=== PATIENT | male | born 1975 | race Caucasian/White ===

== ENCOUNTER → 2022-10-26 | Outpatient (CLI) | payer BC ==
[~2022-10-26] MED LIST: AMLO1TAB25 PO; ASPI81TA26 PO; LIDOCAINE 1% MDV 20ML VIAL As Ordered ONE; PANT40TA29 PO; VYVA70CA3 PO
[2022-10-26 13:05] LABS: HEMATOCRIT 50.3 % (42.0-52.0); HEMOGLOBIN 14.5 g/dl (13.5-17.5); MEAN CORPUSCULAR HGB CONC 28.8 g/dl (32.0-36.5); MEAN CORPUSCULAR VOLUME 72.7 fl (80.0-96.0); PLATELET COUNT, AUTOMATED 280 10^3/uL (150-450); RED BLOOD COUNT 6.92 10^6/uL (4.30-6.10); WHITE BLOOD COUNT 7.7 10^3/uL (4.0-10.0)
[2022-10-26 13:24] VITALS: BP 160/100
[2022-10-26 13:29] LABS: ATYPICAL LYMPH 1 % (0-5); BASOPHILS 4 % (0-1); LYMPHOCYTES 15 % (16-44); MONOCYTES 10 % (0-5); NEUTROPHILS 66 % (28-66)
[2022-10-26 13:30] LABS: HYPOCHROMASIA 2+
[2022-10-26 13:32] LABS: ANISOCYTOSIS 3+; PLATELET ESTIMATE NORMAL (NORMAL)
== END ==
LOC: M IRPRO 12:17
PROVIDERS: ATTEND Internal Medicine Medical Oncology
DX: D75.1 Secondary polycythemia (principal)